=== PATIENT | male | born 1950 | race Caucasian/White ===

== ENCOUNTER 2023-11-17 04:52 | Emergency (ER) | payer OTHER, MEDICARE ==
[2023-11-17 05:34] LABS: BASOPHILS PERCENT AUTO 0.2 % (0.3-3.8); EOSINOPHILS ABSOLUTE AUTO 0.1 x10-3/uL (0.0-0.6); EOSINOPHILS PERCENT AUTO 0.4 % (0.1-6.8); HEMATOCRIT 41.7 % (38.3-50.1); LYMPHOCYTES ABSOLUTE AUTO 0.9 x10-3/uL (0.5-4.5); LYMPHOCYTES PERCENT AUTO 6.3 % (15.8-45.3); MEAN CORPUSCULAR HEMOGLOBIN 29.7 pg (27.0-33.3); MEAN CORPUSCULAR HGB CONC 33.6 g/dL (28.7-35.3); MEAN CORPUSCULAR VOLUME 88.4 fL (80.8-98.7); MEAN PLATELET VOLUME 8.5 fL (6.7-11.0); MONOCYTES ABSOLUTE AUTO 1.4 x10-3/uL (0.0-1.2); MONOCYTES PERCENT AUTO 9.9 % (5.5-15.2); NEUTROPHILS ABSOLUTE AUTO 11.8 x10-3/uL (1.7-6.9); NEUTROPHILS PERCENT AUTO 83.2 % (40.3-71.8); PLATELET COUNT,PLT 280 x10(3)uL (117-477); RED BLOOD CELL COUNT 4.72 x10(6)uL (3.90-5.90); RED CELL DISTRIBUTION WIDTH 13.5 % (12.4-15.0); WHITE BLOOD CELL COUNT,WBC 14.2 x10-3/uL (3.2-10.1)
[2023-11-17 05:42] LABS: BLOOD UREA NITROGEN,BUN 16 mg/dL (7-18); CALCIUM 8.6 mg/dL (8.6-10.2); CARBON DIOXIDE,CO2 27 mmol/L (21-32); CHLORIDE,CL 97 mmol/L (100-110); EST CRCL DRUG DOSING (CG) 59.37 mL/min; ESTIMATED GFR 79 mL/min (>60); GLUCOSE RANDOM 270 mg/dL (80-116); POTASSIUM,K 3.8 mmol/L (3.5-5.3); SODIUM,NA 134 mmol/L (135-145)
[2023-11-17 05:48] LABS: A/G RATIO 0.7; ALANINE AMINOTRANSFERASE,ALT 36 U/L (12-36); ALBUMIN 3.2 g/dL (3.2-4.6); ALKALINE PHOSPHATASE 98 IU/L (56-112); ASPARTATE AMNIOTRANSFERASE,AST 24 IU/L (5-25); BILIRUBIN TOTAL 0.6 mg/dL (0.1-1.3); PROTEIN TOTAL,TP 7.7 g/dL (6.0-8.0)
[2023-11-17 05:54] LABS: TROPONIN I 6.4 pg/mL (4.0-60.3)
[2023-11-17] MEDS: Ondansetron 4 MG/2 ML SDV IVPUSH ONE (06:14)
[2023-11-17] MEDS: Sodium Chloride 0.9% 10 ML Syringe FLUSH PRN (06:16)
[2023-11-17] MEDS: Acetaminophen 325 MG Tab PO ONE (06:21)
[2023-11-17] MEDS: Metoclopramide 10 MG/2 ML SDV IVPUSH ONE (07:57)
== END 2023-11-17 08:14 | disposition home or self-care (01) ==
LOC: FB.ED 04:52
DX: S01.511A Laceration without foreign body of lip, initial encounter (principal); I48.92 Unspecified atrial flutter; R55 Syncope and collapse; W19.XXXA Unspecified fall, initial encounter; Y93.89 Activity, other specified; Y92.002 Bathroom of unspecified non-institutional (private) residence as the place of occurrence of the external cause
CPT/HCPCS: 36415; 70450; 71250; 72125; 80053; 83880; 84484; 85025; 93005; 96374; 96375; 99284-25; A9270-GY; J2405; J2765; J3490